=== PATIENT | female | born 1985 | race Hispanic/Latino ===

== ENCOUNTER 2019-08-01 17:14 | Emergency (ER) | payer MEDICAID ==
--- NOTE | 2019-08-01 17:41 | Event Note ---
ED Screening Note Date of service: 08/01/19 Time: 17:37 ED Screening Note: 33 y o female presents with pelvic pain and cramping with headaches x today Irregular cycle This initial assessment/diagnostic orders/clinical plan/treatment(s) is/are subject to change based on patients health status, clinical progression and re- assessment by fellow clinical providers in the ED. Further treatment and workup at subsequent clinical providers discretion. Patient/guardian urged not to elope from the ED as their condition may be serious if not clinically assessed and managed. Initial orders include: ua,upt US
[2019-08-01 19:47] LABS: Bilirubin,Urine NEG (Negative); Blood,Urine NEG (Negative); Color,Urine Straw (Yellow); Protein,Urine <15 mg/dL mg/dL (Negative); Urobilinogen,Urine < 2.0 mg/dL (<2.0)
--- NOTE | 2019-08-01 19:49 | Ultrasound Report ---
ULTRASOUND PELVIS INDICATION: Pelvic pain. TECHNIQUE: Transabdominal and Transvaginal. Duplex Color Doppler used: Yes. COMPARISON: None available FINDINGS: Uterus: Present. Size: 7.8 x 4.7 x 5.9 cm. Endometrial complex: Measures 8 mm in thickness. An IUD appears to be in good position. No significan t abnormality is identified. Mass lesions: There is a probable uterine fundal fibroid measuring 2.0 x 1.9 x 1.6 cm. Additional findings: None. Right Ovary: Size: 3.4 x 1.6 x 2.9 cm Blood flow: Normal. Cyst or mass: None. Left Ovary: Size: 5.4 x 3.4 x 5.7 cm Blood flow: Normal. Cyst or mass: A simple appearing cyst measures 4.6 x 2.7 x 3.8 cm. No solid lesions. Urinary Bladder: Normal. Free Fluid: None. Additional Findings: None. IMPRESSION: 1. No acute sonographic abnormality of the pelvis. 2. Probable uterine fibroid as above. 3. Simple appearing left ovarian cyst as above. Signer Name: John Aguilar MD Signed: 08/01/2019 7:45 PM Workstation Name: [id number]
[2019-08-01 19:51] LABS: HCG Qualitative,Urine Negative (Negative)
[2019-08-01] MEDS ORDERED: IBUPROFEN 600 MG TAB PO ONE ×2 (20:02→20:04)
--- NOTE | 2019-08-01 22:35 | Emergency Department Report ---
ED Abdominal Pain HPI - General Chief Complaint: Abdominal Pain Stated Complaint: CRAMPING/HEADACHE Time Seen by Provider: 08/01/19 22:15 Source: patient Mode of arrival: Ambulatory Limitations: No Limitations - History of Present Illness Initial Comments: Patient is a 33-year-old female that presents emergency room with complaints of lower abdominal pain and cramps. Patient states she is having suprapubic and bilateral lower quadrant pain. Patient states the pain is a 9 out of 10. Patient states the pain is better with rest and worse with palpation and movement. Patient states that the pain is giving her a headache. P states her headache is a 6 out of 10. Patient denies neck stiffness. Patient denies nausea vomiting. Patient denies blurry vision. Patient denies dizziness. Patient denies loss of consciousness. Patient denies head trauma. Patient states she has a IUD that was placed by her [employer] INTER[employer]. Patient states she is worried that the IUD has moved. Patient denies vaginal bleeding. Patient denies vaginal discharge. Patient den ies vaginal odor. Patient denies dysuria. MD Complaint: abdominal pain -: Sudden Location: suprapubic Radiation: LLQ, RLQ Migration to: no migration Severity: severe Severity scale (0 -10): 9 Quality: cramping, stabbing Consistency: constant Improves With: rest Worsens With: movement Context: other Associated Symptoms: denies: nausea, vomiting, diarrhea, fever, chills, c onstipation, dysuria, hematemesis, hematochezia, melena, hematuria, anorexia, syncope Treatments Prior to Arrival: other - Related Data LMP (females 10-50): unknown Previous Rx's Medication Instructions Recorded Last Taken Type Acetaminophen/Codeine [Tylenol 1 tab PO Q4HR PRN #12 tablet 08/02/19 Unknown Rx /Codeine # 3 tab] Ibuprofen [Motrin 800 MG tab] 800 mg PO Q8HR PRN #30 tablet 08/02/19 Unknown Rx Allergies Allergy/AdvReac Type Severity Reaction Status Date / Time amoxicillin Allergy Rash Verified 08/01/19 17:35 ciprofloxacin [From Cipro] Allergy Anaphylaxis Verified 08/01/19 17:35 ED Review of Systems ROS: Stated complaint: CRAMPING/HEADACHE Other details as noted in HPI Constitutional: denies: chills, fever Eyes: denies: eye pain, eye discharge, vision change ENT: denies: ear pain, throat pain Respiratory: denies: cough, shortness of breath, wheezing Cardiovascular: denies: chest pain, palpitations Endocrine: no symptoms reported Gastrointestinal: abdominal pain. denies: nausea, diarrhea Genitourinary: denies: urgency, dysuria, frequency, hematuria, discharge, abnormal menses, dyspareunia Musculoskeletal: denies: back pain, joint swelling, arthralgia Skin: denies: rash, lesions Neurological: headache. denies: weakness, paresthesias Psychiatric: denies: anxiety, depression Hematological/Lymphatic: denies: easy bleeding, easy bruising ED Past Medical Hx - Past Medical History Previous Medical History?: Yes Hx Asthma: Yes Additional medical history: Anemia - Surgical History Past Surgical History?: Yes Hx Appendectomy: Yes Additional Surgical History: back surgery - Family History Family history: no significant - Social History Smoking Status: Never Smoker Substance Use Type: None - Medications Home Medications: Home Medications Medication Instructions Recorded Confirmed Last Taken Type Acetaminophen/Codeine [Tylenol 1 tab PO Q4HR PRN #12 tablet 08/02/19 Unknown Rx /Codeine # 3 tab] Ibuprofen [Motrin 800 MG tab] 800 mg PO Q8HR PRN #30 tablet 08/02/19 Unknown Rx ED Physical Exam - General Limitations: No Limitations General appearance: alert, in no apparent distress - Head Head exam: Present: atraumatic, normocephalic - Eye Eye exam: Present: normal appearance, PERRL Pupils: Present: normal accommodation - ENT ENT exam: Present: mucous membranes moist - Neck Neck exam: Present: normal inspection, full ROM. Absent: tenderness, meningismus - Respiratory Respiratory exam: Present: normal lung sounds bilaterally. Absent: respiratory distress, wheezes, rales - Cardiovascular Cardiovascular Exam: Present: regular rate, normal rhythm. Absent: systolic murmur, diastolic murmur, rubs, gallop - GI/Abdominal GI/Abdominal exam: Present: soft, tenderness (Suprapubic tenderness. Left lower and right lower quadrant tenderness to palpation), normal bowel sounds - Extremities Exam Extremities exam: Present: normal inspection - Back Exam Back exam: Present: normal inspection - Neurological Exam Neurological exam: Present: alert, oriented X3 - Psychiatric Psychiatric exam: Present: normal affect, normal mood - Skin Skin exam: Present: warm, dry, intact, normal color. Absent: rash ED Course Vital Signs 02/26/20 02/26/20 02/26/20 20:00 20:10 23:31 Temperature 97.8 F Pulse Rate 63 87 Respiratory 18 18 18 Rate Blood Pressure 114/70 Blood Pressure 122/81 [Right] O2 Sat by Pulse 100 97 Oximetry - Reevaluation(s) Reevaluation #1: I discussed all results and clinical findings with patient. I discussed plan of care with patient. Patient agrees with plan of care. Patient is stable for discharge. Patient will be discharged home. Patient given discharge in structions. Patient voiced understanding of discharge instructions. 08/02/19 01:19 ED Medical Decision Making - Lab Data Result diagrams: 08/01/19 22:51 08/01/19 22:51 - Radiology Data Radiology results: report reviewed ULTRASOUND PELVIS INDICATION: Pelvic pain. TECHNIQUE: Transabdominal and Transvaginal. Duplex Color Doppler used: Yes. COMPARISON: None available FINDINGS: Uterus: Present. Size: 7.8 x 4.7 x 5.9 cm. Endometrial complex: Measures 8 mm in thickness. An IUD appears to be in good position. No significant abnormality is identified. Mass lesions: There is a probable uterine fundal fibroid measuring 2.0 x 1.9 x 1.6 cm. Additional findings: None. Right Ovary: Size: 3.4 x 1.6 x 2.9 cm Blood flow: Normal. Cyst or mass: None. Left Ovary: Size: 5.4 x 3.4 x 5.7 cm Blood flow: Normal. Cyst or mass: A simple appearing cyst measures 4.6 x 2.7 x 3.8 cm. No solid lesions. Urinary Bladder: Normal. Free Fluid: None. Additional Findings: None. IMPRESSION: 1. No acute sonographic abnormality of the pelvis. 2. Probable uterine fibroid as above. 3. Simple appearing left ovarian cyst as above. CT ABDOMEN AND PELVIS WITH IV CONTRAST INDICATION: Pt complains of bi-lateral lower abdominal pain x 2 weeks.. COMPARISON: None available. TECHNIQUE: All CT scans at this facility use dose modulation, automated exposure control, i terative reconstruction or weight based dosing, when appropriate, to reduce radiation dose to as low as reasonably achievable. FINDINGS: Lung Bases: No significant abnormality. Skeletal System: No acute abnormality. ABDOMEN: Liver: No significant abnormality. Gallbladder: No significant abnormality. Bile Ducts: No significant abnormality. Pancreas: No significant abnormality. Spleen: Splenomegaly, mild. Adrenals: No significant abnormality. Right Kidney: No significant abnormality. Left Kidney: No significant abnormality. Upper GI tract: No significant abnormality. Lymph Nodes: No significant adenopathy. Aorta: No significant abnormality. Additional Findings: No significant abnormality. PELVIS: Colon: No acute abnormality. Diverticulosis is noted. Urinary Bladder and Distal Ureters: No significant abnormality. Appendix: Not visualized. Lymph Nodes: No significant adenopathy. Additional Findings: IUD is noted in expected position. There is a 3.8 cm left ovarian cyst. The cervix appears mildly edematous. IMPRESSION: 1. Subjectively, the cervix appears mildly edematous. Correlate clinically. 2. 3.8 cm left ovarian cyst. - Medical Decision Making Patient is a 33-year-old female that presents emergency room with bilateral lower abdominal pain and suprapubic abdominal pain. Patient had a ultrasound done and shows IUD is in good place and a uterine fibroid and a ovarian cyst. Since the patient had bilateral lower quadrant tenderness a CT was done. CT shows no acute findings except for subjective cervical edema and ovarian cyst. Labs unremarkable. Patient stable for discharge. Patient discharged home. Finesse ramirez is to follow-up with an ENRICHMENT ASSISTANT. Patient needs to see primary care. - Differential Diagnosis Appendicitis, migrated IUD, ovarian cyst, gastroenteritis Critical care attestation.: If time is entered above; I have spent that time in minutes in the direct care of this critically ill patient, excluding procedure time. ED Disposition Clinical Impression: Abdominal cramping, IUD (intrauterine device) in place Abdominal pain Qualifiers: Abdominal location: lower abdomen, unspecified Qualified Code(s): R10.30 - Lower abdominal pain, unspecified Ovarian cyst Qualifiers: Laterality: left Qualified Code(s): N83.202 - Unspecified ovarian cyst, left side Uterine fibroid Qualifiers: Uterine leiomyoma location: unspecified location Qualified Code(s): D25.9 - Leiomyoma of uterus, unspecified Disposition: DC- TO HOME OR SELFCARE Is pt being admited?: No Does the pt Need Aspirin: No Condition: Stable Instructions: Ovarian Cyst (ED), Abdominal Pain (ED) Additional Instructions: Patient to follow-up with primary care in 2 to 3 days. Patient to follow-up with ENRICHMENT ASSISTANT in 2 to 3 days. Nothing per vagina until cleared by ENRICHMENT ASSISTANT. Patient to rest. Patient to increase water. Patient to avoid strenuous exercise or heavy lifting until cleared by ENRICHMENT ASSISTANT. Patient to take Tylenol or ibuprofen as needed for pain. Patient to take meds as directed. Patient to return to the ER if condition worsens, changes or new symptoms arise. Prescriptions: Ibuprofen [Motrin 800 MG tab] 800 mg PO Q8HR PRN #30 tablet PRN Reason: Pain, Moderate (4-6) Acetaminophen/Codeine [Tylenol /Codeine # 3 tab] 1 tab PO Q4HR PRN #12 tablet PRN Reason: Pain , Severe (7-10) Referrals: PRIMARY CARE, [Primary Care Provider] - 2-3 Days FRANDY SHARIF MD [Staff Physician] - 2-3 Days Time of Disposition: 01:12
[2019-08-01] MEDS ORDERED: HYDROmorphone 1 MG/1 ML INJ IV ONE (22:56)
[2019-08-01 23:03] LABS: Hematocrit 41.8 % (30.3-42.9); Hemoglobin 14.1 gm/dl (10.1-14.3); Mean Corpuscular HGB Conc 34 % (30-34); Mean Corpuscular Volume 85 fl (79-97); Platelet Count 166 K/mm3 (140-440); Red Blood Count 4.89 M/mm3 (3.65-5.03); Red Cell Distribution Width 12.5 % (13.2-15.2)
[2019-08-01 23:27] LABS: Alanine Aminotransferase 7 units/L (7-56); Albumin 4.1 g/dL (3.9-5); BUN/Creatinine Ratio 18; Blood Urea Nitrogen 9 mg/dL (7-17); Calcium 8.8 mg/dL (8.4-10.2); Hemolysis Index 8
--- NOTE | 2019-08-02 00:56 | Cat Scan Report ---
CT ABDOMEN AND PELVIS WITH IV CONTRAST INDICATION: Pt complains of bi-lateral lower abdominal pain x 2 weeks.. COMPARISON: None available. TECHNIQUE: All CT scans at this facility use dose modulation, automated exposure control, iterative reconstructi on or weight based dosing, when appropriate, to reduce radiation dose to as low as reasonably achieva ble. FINDINGS: Lung Bases: No significant abnormality. Skeletal System: No acute abnormality. ABDOMEN: Liver: No significant abnormality. Gallbladder: No significant abnormality. Bile Ducts: No significant abnormality. Pancreas: No significant abnormality. Spleen: Splenomegaly, mild. Adrenals: No significant abnormality. Right Kidney: No significant abnormality. Left Kidney: No significant abnormality. Upper GI tract: No significant abnormality. Lymph Nodes: No significant adenopathy. Aorta: No significant abnormality. Additional Findings: No significant abnormality. PELVIS: Colon: No acute abnormality. Diverticulosis is noted. Urinary Bladder and Distal Ureters: No significant abnormality. Appendix: Not visualized. Lymph Nodes: No significant adenopathy. Additional Findings: IUD is noted in expected position. There is a 3.8 cm left ovarian cyst. The cerv ix appears mildly edematous. IMPRESSION: 1. Subjectively, the cervix appears mildly edematous. Correlate clinically. 2. 3.8 cm left ovarian cyst. Signer Name: Magan Manriquez MD Signed: 08/02/2019 12:52 AM Workstation Name: [email or web address]
[2019-08-02 01:23] VITALS: BP 107/67
== END 2019-08-02 01:23 | disposition home or self-care (01) ==
LOC: ED 17:14
DX: Z30.431 Encounter for routine checking of intrauterine contraceptive device (principal); R10.30 Lower abdominal pain, unspecified; N83.202 Unspecified ovarian cyst, left side; D25.9 Leiomyoma of uterus, unspecified; J45.909 Unspecified asthma, uncomplicated; D64.9 Anemia, unspecified; Z88.0 Allergy status to penicillin; Z88.1 Allergy status to other antibiotic agents; Z79.899 Other long term (current) drug therapy; Z98.890 Other specified postprocedural states; Z90.49 Acquired absence of other specified parts of digestive tract
CPT/HCPCS: 36415; 74177; 76830; 76856; 80053; 81001; 81025; 85027; 96374; 99284; J1170; Q9967

== ENCOUNTER 2019-10-30 16:53 | Emergency (ER) | payer BC, MEDICAID ==
[2019-10-30] MEDS ORDERED: ASPIRIN 325 MG TAB PO ONE (17:18)
--- NOTE | 2019-10-30 17:44 | XRay Report ---
CHEST 2 VIEWS INDICATION / CLINICAL INFORMATION: Chest Pain. COMPARISON: None available. FINDINGS: SUPPORT DEVICES: None. HEART / MEDIASTINUM: No significant abnormality. LUNGS / PLEURA: No significant pulmonary or pleural abnormality. No pneumothorax. ADDITIONAL FINDINGS: Bilateral nipple piercings. IMPRESSION: 1. No acute findings. Signer Name: Nael Malone MD Signed: 10/30/2019 5:40 PM Workstation Name: [id number]
[2019-10-30 18:22] LABS: Basophils % (Auto) 0.2 % (0.0-1.8); Eosinophils # (Auto) 0.1 K/mm3 (0.0-0.4); Eosinophils % (Auto) 1.1 % (0.0-4.3); Hematocrit 41.1 % (30.3-42.9); Hemoglobin 13.8 gm/dl (10.1-14.3); Lymphocytes # (Auto) 2.9 K/mm3 (1.2-5.4); Lymphocytes % (Auto) 30.3 % (13.4-35.0); Mean Corpuscular HGB Conc 34 % (30-34); Mean Corpuscular Volume 85 fl (79-97); Monocytes # (Auto) 0.5 K/mm3 (0.0-0.8); Monocytes % (Auto) 5.1 % (0.0-7.3); Platelet Count 184 K/mm3 (140-440); Red Blood Count 4.82 M/mm3 (3.65-5.03); Red Cell Distribution Width 13.1 % (13.2-15.2)
[2019-10-30 18:46] LABS: BUN/Creatinine Ratio 16; Blood Urea Nitrogen 11 mg/dL (7-17); Calcium 9.4 mg/dL (8.4-10.2); Hemolysis Index 13
[2019-10-30] MEDS ORDERED: KETOROLAC 30 MG/1 ML INJ IM ONE (22:52)
[2019-10-30] MEDS ORDERED: ASPIRIN 325 MG TAB ONE (23:08)
[2019-10-30 23:39] LABS: INR 1.13 (0.87-1.13)
[2019-10-30 23:40] LABS: Partial Thromboplastin Time 28.8 Sec. (24.2-36.6)
--- NOTE | 2019-10-30 23:46 | Emergency Department Report ---
ED Chest Pain HPI - General Chief Complaint: Chest Pain Stated Complaint: CHEST PAIN Time Seen by Provider: 10/30/19 22:15 Source: patient Mode of arrival: Ambulatory Limitations: No Limitations - History of Present Illness Initial Comments: 33 yo F w/ hx anxiety presents to ED with right sided chest pain. Pt states initially began having right subscapular pain yesterday. Today, right anterior chest pain, worse w/ deep breath. Pt denies cough, fever, shortness of breath, leg pain or swelling. Pt believes symptoms may be due to stress. MD Complaint: chest pain -: This morning Onset: during rest Pain Location: right chest Pain Radiation: back Severity: moderate Severity scale (0 -10): 8 Quality: sharp Consistency: constant Improves With: nothing Worsens With: inspiration re: denies: nausea, vomting, diaphoresis, dyspnea Other Symptoms: denies: cough, fever, leg swelling - Related Data Previous Rx's Medication Instructions Recorded Last Taken Type Acetaminophen/Codeine [Tylenol 1 tab PO Q4HR PRN #12 tablet 08/02/19 Unknown Rx /Codeine # 3 tab] Ibuprofen [Motrin 800 MG tab] 800 mg PO Q8HR PRN #30 tablet 08/02/19 Unknown Rx Naproxen [Naprosyn] 500 mg PO BID #20 tablet 10/30/19 Unknown Rx methOCARBAMOL [Robaxin TAB] 500 mg PO Q8HR PRN #20 tablet 10/30/19 Unknown Rx Allergies Allergy/AdvReac Type Severity Reaction Status Date / Time amoxicillin Allergy Rash Verified 08/01/19 17:35 ciprofloxacin [From Cipro] Allergy Anaphylaxis Verified 08/01/19 17:35 Heart Score - HEART Score History: Slightly suspicious EKG: Normal Age: < 45 Risk factors: No known risk factors Troponin: < normal limit HEART Score: 0 ED Review of Systems ROS: Stated complaint: CHEST PAIN Other details as noted in HPI Comment: All other systems reviewed and negative Constitutional: denies: chills, fever Respiratory: denies: cough, shortness of breath Cardiovascular: chest pain Gastrointestinal: denies: nausea, vomiting ED Past Medical Hx - Past Medical History Previous Medical History?: Yes Hx Psychiatric Treatment: Yes (anxeity) Hx Asthma: Yes Additional medical history: Anemia - Surgical History Past Surgical History?: Yes Hx Appendectomy: Yes Additional Surgical History: back surgery. x2 - Social History Smoking Status: Never Smoker Substance Use Type: None - Medications Home Medications: Home Medications Medication Instructions Recorded Confirmed Last Taken Type Acetaminophen/Codeine [Tylenol 1 tab PO Q4HR PRN #12 tablet 08/02/19 Unknown Rx /Codeine # 3 tab] Ibuprofen [Motrin 800 MG tab] 800 mg PO Q8HR PRN #30 tablet 08/02/19 Unknown Rx Naproxen [Naprosyn] 500 mg PO BID #20 tablet 10/30/19 Unknown Rx methOCARBAMOL [Robaxin TAB] 500 mg PO Q8HR PRN #20 tablet 10/30/19 Unknown Rx ED Physical Exam - General Limitations: No Limitations General appearance: alert, in no apparent distress - Head Head exam: Present: atraumatic, normocephalic - Eye Eye exam: Present: normal appearance - ENT ENT exam: Present: mucous membranes moist - Neck Neck exam: Present: normal inspection - Respiratory Respiratory exam: Present: normal lung sounds bilaterally, chest wall tenderness (right anterior chest wall). Absent: respiratory distress - Cardiovascular Cardiovascular Exam: Present: regular rate, normal rhythm - GI/Abdominal GI/Abdominal exam: Present: soft. Absent: distended, tenderness - Extremities Exam Extremities exam: Present: normal inspection - Neurological Exam Neurological exam: Present: alert, oriented X3 - Psychiatric Psychiatric exam: Present: normal affect, normal mood - Skin Skin exam: Present: warm, dry, intact, normal color ED Course Vital Signs 10/30/19 10/30/19 10/30/19 17:15 22:14 22:19 Temperature 98.9 F Pulse Rate 86 Respiratory 18 18 Rate Blood Pressure 119/79 124/81 O2 Sat by Pulse 100 Oximetry 10/30/19 10/30/19 10/30/19 22:31 22:45 23:01 Temperature Pulse Rate 72 76 72 Respiratory 18 17 21 Rate Blood Pressure 124/81 115/71 O2 Sat by Pulse 100 100 99 Oximetry 10/30/19 10/30/19 10/30/19 23:15 23:31 23:45 Temperature Pulse Rate 69 70 77 Respiratory 14 20 16 Rate Blood Pressure 115/71 115/71 115/71 O2 Sat by Pulse 97 99 98 Oximetry 10/30/19 10/31/19 10/31/19 23:54 00:00 00:13 Temperature Pulse Rate 73 72 68 Respiratory 16 17 17 Rate Blood Pressure 115/71 109/70 115/71 O2 Sat by Pulse 99 98 97 Oximetry 10/31/19 10/31/19 00:15 00:20 Temperature 98.0 F Pulse Rate 72 Respiratory 15 Rate Blood Pressure 115/71 O2 Sat by Pulse 96 Oximetry ED Medical Decision Making - Lab Data Result diagrams: 10/30/19 17:58 10/30/19 17:58 - EKG Data -: EKG Interpreted by Md EKG shows normal: sinus rhythm, axis, intervals, QRS complexes, ST-T waves Rate: normal - EKG Data Interpretation: no acute changes - Radiology Data Radiology results: report reviewed, image reviewed - Medical Decision Making Pleuritic right-sided chest pain. Chest wall tenderness on exam. EKG normal. Labs normal including troponin x 2 and D-dimer. CXR negative. Vitals normal. Will d/c home. Outpt f/u advised. Return precautions given. - Differential Diagnosis pneumonia, PTX, PE Critical care attestation.: If time is entered above; I have spent that time in minutes in the direct care of this critically ill patient, excluding procedure time. ED Disposition Clinical Impression: Acute chest wall pain Disposition: - TO HOME OR SELFCARE Is pt being admited?: No Condition: Stable Instructions: Chest Pain (ED), Costochondritis (ED) Prescriptions: Naproxen [Naprosyn] 500 mg PO BID #20 tablet methOCARBAMOL [Robaxin TAB] 500 mg PO Q8HR PRN #20 tablet PRN Reason: Muscle Spasm Referrals: PRIMARY CARE, [Primary Care Provider] - 3-5 Days Time of Disposition: 23:53
[2019-10-31 00:21] VITALS: BP 115/71
== END 2019-10-31 00:21 | disposition home or self-care (01) ==
LOC: ED 16:53
DX: R07.89 Other chest pain (principal); F41.9 Anxiety disorder, unspecified; J45.909 Unspecified asthma, uncomplicated; D64.9 Anemia, unspecified; Z98.890 Other specified postprocedural states; Z79.899 Other long term (current) drug therapy; Z88.8 Allergy status to other drugs, medicaments and biological substances; Z90.49 Acquired absence of other specified parts of digestive tract
CPT/HCPCS: 36415; 71046; 80048; 84484; 85025; 85379; 85610; 85730; 93005; 96372; 99284; J1885

== ENCOUNTER 2020-02-04 17:49 | Emergency (ER) | payer BC, MEDICAID ==
[2020-02-04] MEDS ORDERED: ASPIRIN 325 MG TAB PO ONE (18:06)
[2020-02-04 18:08] VITALS: BP 128/84
[2020-02-04 18:35] LABS: Basophils % (Auto) 0.3 % (0.0-1.8); Eosinophils # (Auto) 0.1 K/mm3 (0.0-0.4); Eosinophils % (Auto) 0.6 % (0.0-4.3); Hematocrit 42.6 % (30.3-42.9); Hemoglobin 14.2 gm/dl (10.1-14.3); Lymphocytes # (Auto) 2.5 K/mm3 (1.2-5.4); Lymphocytes % (Auto) 26.1 % (13.4-35.0); Mean Corpuscular HGB Conc 33 % (30-34); Mean Corpuscular Volume 87 fl (79-97); Monocytes # (Auto) 0.4 K/mm3 (0.0-0.8); Monocytes % (Auto) 4.6 % (0.0-7.3); Platelet Count 197 K/mm3 (140-440); Red Blood Count 4.92 M/mm3 (3.65-5.03); Red Cell Distribution Width 13.2 % (13.2-15.2)
[2020-02-04 18:48] LABS: Blood Urea Nitrogen 13 mg/dL (7-17); Calcium 9.4 mg/dL (8.4-10.2); Hemolysis Index 16
[2020-02-04 18:54] LABS: BUN/Creatinine Ratio 19
--- NOTE | 2020-02-04 19:17 | Event Note ---
ED Screening Note Date of service: 02/04/20 Time: 19:16 ED Screening Note: 34-year-old female presents with pressure-like chest pain mid sternal and shortness of breathing that began today. Patient states after she got home sx got worse so she came in to be eval This initial assessment/diagnostic orders/clinical plan/treatment(s) is/are subject to change based on patients health status, clinical progression and re- assessment by fellow clinical providers in the ED. Further treatment and workup at subsequent clinical providers discretion. Patient/guardian urged not to elope from the ED as their condition may be serious if not clinically assessed and managed. Initial orders include: labs,ekg. cxr
--- NOTE | 2020-02-04 20:31 | XRay Report ---
CHEST 1 VIEW INDICATION: Chest Pain COMPARISON: 10/30/2019 FINDINGS: SUPPORT DEVICES: None. HEART / MEDIASTINUM: No significant abnormality. LUNGS / PLEURA: No significant pulmonary or pleural abnormality. No pneumothorax. ADDITIONAL FINDINGS: IMPRESSION: 1. No acute cardiopulmonary disease Signer Name: Norberto Angel MD Signed: 02/04/2020 8:26 PM Workstation Name: [id number]
--- NOTE | 2020-02-04 21:05 | Emergency Department Report ---
ED Chest Pain HPI - General Chief Complaint: Chest Pain Stated Complaint: SOB/CP/N/V/BODY PAIN Time Seen by Provider: 02/04/20 19:54 Source: patient Mode of arrival: Ambulatory Limitations: No Limitations - History of Present Illness Initial Comments: 34-year-old female patient presents with complaints of bilateral parasternal and substernal chest pain and shortness of breath starting suddenly today. She reports history of anxiety and states initially her pain in her chest felt like anxiety, however the pain progressed and was worse than normal. She states she normally takes Klonopin, but she was at work and was unable to do so. She denies any other prior medical history. Patient does admit to having a Mirena in place, but denies any leg pain/swelling, history of DVT/PE/cancer, recent long travel/surgeries, cough, hemoptysis, abdominal pain, vomiting/diarrhea, or known recent since sick contacts. She rates her current pain as a 9/10 in severity and and describes the pain as a pressure. Pain worsens with deep inspiration per patient. She denies any personal history or family history of heart disease. -: Gradual, Sudden Severity scale (0 -10): 9 - Related Data Previous Rx's Medication Instructions Recorded Last Taken Type Acetaminophen/Codeine [Tylenol 1 tab PO Q4HR PRN #12 tablet 08/02/19 Unknown Rx /Codeine # 3 tab] Ibuprofen [Motrin 800 MG tab] 800 mg PO Q8HR PRN #30 tablet 08/02/19 Unknown Rx Naproxen [Naprosyn] 500 mg PO BID #20 tablet 10/30/19 Unknown Rx methOCARBAMOL [Robaxin TAB] 500 mg PO Q8HR PRN #20 tablet 10/30/19 Unknown Rx Ibuprofen [Motrin 800 MG tab] 800 mg PO Q8HR PRN #15 tablet 02/04/20 Unknown Rx Allergies Allergy/AdvReac Type Severity Reaction Status Date / Time amoxicillin Allergy Rash Verified 02/04/20 18:03 ciprofloxacin [From Cipro] Allergy Anaphylaxis Verified 02/04/20 18:03 Heart Score - HEART Score History: Slightly suspicious EKG: Normal Age: < 45 Risk factors: No known risk factors Troponin: < normal limit HEART Score: 0 - Critical Actions Critical Actions: 0-3 pts:0.9-1.7%risk of adverse cardiac event.Candidate for discharge ED Review of Systems ROS: Stated complaint: SOB/CP/N/V/BODY PAIN Other details as noted in HPI Constitutional: denies: chills, diaphoresis, fever, malaise, weakness ENT: denies: throat pain Respiratory: shortness of breath. denies: cough Cardiovascular: chest pain. denies: edema, syncope Gastrointestinal: nausea. denies: abdominal pain, vomiting, diarrhea, constipation Genitourinary: denies: urgency, dysuria, hematuria Musculoskeletal: denies: back pain Skin: denies: rash, lesions Neurological: denies: headache ED Past Medical Hx - Past Medical History Hx Psychiatric Treatment: Yes (anxeity) Hx Asthma: Yes Additional medical history: Anemia - Surgical History Hx Appendectomy: Yes Additional Surgical History: back surgery. x2 - Social History Smoking Status: Never Smoker Substance Use Type: None - Medications Home Medications: Home Medications Medication Instructions Recorded Confirmed Last Taken Type Acetaminophen/Codeine [Tylenol 1 tab PO Q4HR PRN #12 tablet 08/02/19 Unknown Rx /Codeine # 3 tab] Ibuprofen [Motrin 800 MG tab] 800 mg PO Q8HR PRN #30 tablet 08/02/19 Unknown Rx Naproxen [Naprosyn] 500 mg PO BID #20 tablet 10/30/19 Unknown Rx methOCARBAMOL [Robaxin TAB] 500 mg PO Q8HR PRN #20 tablet 10/30/19 Unknown Rx Ibuprofen [Motrin 800 MG tab] 800 mg PO Q8HR PRN #15 tablet 02/04/20 Unknown Rx ED Physical Exam - General Limitations: No Limitations General appearance: alert, in no apparent distress - Head Head exam: Present: atraumatic, normocephalic - Eye Eye exam: Present: normal appearance. Absent: scleral icterus - Respiratory Respiratory exam: Present: normal lung sounds bilaterally, chest wall tenderness (Bilateral parasternal parasternal ). Absent: respiratory distress - Cardiovascular Cardiovascular Exam: Present: regular rate, normal rhythm. Absent: systolic murmur, diastolic murmur, rubs, gallop - GI/Abdominal GI/Abdominal exam: Present: soft, normal bowel sounds - Extremities Exam Extremities exam: Present: normal inspection, full ROM. Absent: calf tenderness (No swelling or pain noted to legs bilaterally) - Back Exam Back exam: Present: normal inspection - Neurological Exam Neurological exam: Present: alert, oriented X3, normal gait - Psychiatric Psychiatric exam: Present: normal affect, normal mood - Skin Skin exam: Present: warm, dry, intact, normal color. Absent: rash, cyanosis, diaphoretic, erythema, petechiae, ecchymosis ED Course Vital Signs 02/04/20 02/04/20 02/04/20 18:04 18:06 22:15 Temperature 98.0 F Pulse Rate 100 H 78 Respiratory 20 17 16 Rate Blood Pressure 128/84 O2 Sat by Pulse 99 99 Oximetry ED Medical Decision Making - Lab Data Result diagrams: 02/04/20 18:24 02/04/20 18:24 Lab Results 02/04/20 02/04/20 02/04/20 Range/Units 18:24 18:24 21:09 WBC 9.4 (4.5-11.0) K/mm3 RBC 4.92 (3.65-5.03) M/mm3 Hgb 14.2 (10.1-14.3) gm/dl Hct 42.6 (30.3-42.9) % MCV 87 (79-97) fl MCH 29 (28-32) pg MCHC 33 (30-34) % RDW 13.2 (13.2-15.2) % Plt Count 197 (140-440) K/mm3 Lymph % (Auto) 26.1 (13.4-35.0) % [place] % (Auto) 4.6 (0.0-7.3) % Eos % (Auto) 0.6 (0.0-4.3) % Baso % (Auto) 0.3 (0.0-1.8) % Lymph # 2.5 (1.2-5.4) K/mm3 [place] # 0.4 (0.0-0.8) K/mm3 Eos # 0.1 (0.0-0.4) K/mm3 Baso # 0.0 (0.0-0.1) K/mm3 Seg Neutrophils % 68.4 (40.0-70.0) % Seg Neutrophils # 6.4 (1.8-7.7) K/mm3 D-Dimer 212.99 (0-234) ng/mlDDU Sodium 138 (137-145) mmol/L Potassium 4.3 (3.6-5.0) mmol/L Chloride 104.3 (98-107) mmol/L Carbon Dioxide 21 L (22-30) mmol/L Anion Gap 17 mmol/L BUN 13 (7-17) mg/dL Creatinine 0.7 (0.6-1.2) mg/dL Estimated GFR > 60 ml/min BUN/Creatinine Ratio 19 % Glucose 98 (65-100) mg/dL Calcium 9.4 (8.4-10.2) mg/dL Troponin T < 0.010 (0.00-0.029) ng/mL - EKG Data EKG shows normal: sinus rhythm Rate: normal - EKG Data Interpretation: normal EKG - Radiology Data Radiology results: report reviewed CHEST 1 VIEW INDICATION: Chest Pain COMPARISON: 10/30/2019 FINDINGS: SUPPORT DEVICES: None. HEART / MEDIASTINUM: No significant abnormality. LUNGS / PLEURA: No significant pulmonary or pleural abnormality. No pneumothorax. ADDITIONAL FINDINGS: IMPRESSION: 1. No acute cardiopulmonary disease - Medical Decision Making Patient here with sudden onset of shortness of breath and chest pain. History of anxiety and patient states his pain feels similar but worse than normal. Has not taken her Klonopin today. Repeats over and over that she has been under a lot of stress lately. She denies any chest wall injuries. EKG, troponin, CBC, and CMP are normal. No abnormalities noted on chest x-ray. PERC score = 1 due to Mirena and HR 0f 100. D-dimer is negative. Patient given Ativan and states her symptoms have significantly improved. Tenderness to palpation noted of chest wall. Suspect costochondritis and anxiety as cause of patient's chest pain. Recommend follow-up with primary care within 3 days. Strict return precautions were discussed in detail with patient who verbalized understanding. Critical care attestation.: If time is entered above; I have spent that time in minutes in the direct care of this critically ill patient, excluding procedure time. ED Disposition Clinical Impression: Costochondritis Disposition: - TO HOME OR SELFCARE Is pt being admited?: No Condition: Stable Instructions: Chest Pain (ED), Costochondritis (ED) Prescriptions: Ibuprofen [Motrin 800 MG tab] 800 mg PO Q8HR PRN #15 tablet PRN Reason: pain Referrals: PRIMARY CARE,MD [Primary Care Provider] - 2-3 Days ED Chest pain MDM - PERC Rule Heart Rate < 100: (1) Yes O2 Sat on Room Air > .94%: (0) No No Prior History pf DVT/PE: (0) No No Recent Trauma or Surgery: (0) No Hemoptysis: (0) No No Exogenous Estrogen: (1) Yes No Clinical Signs Suggesting DVT: (0) No
[2020-02-04] MEDS ORDERED: LORazepam 1 MG TAB PO ONE (21:06)
[2020-02-04] MEDS ORDERED: KETOROLAC 10 MG TAB PO ONE (21:46)
== END 2020-02-04 22:15 | disposition home or self-care (01) ==
LOC: ED 17:49
DX: M94.0 Chondrocostal junction syndrome [Tietze] (principal); F41.9 Anxiety disorder, unspecified; J45.909 Unspecified asthma, uncomplicated; Z90.49 Acquired absence of other specified parts of digestive tract; Z98.890 Other specified postprocedural states; Z79.1 Long term (current) use of non-steroidal anti-inflammatories (NSAID); Z79.899 Other long term (current) drug therapy; Z88.1 Allergy status to other antibiotic agents
CPT/HCPCS: 36415; 71045; 80048; 84484; 85025; 85379; 93005

== ENCOUNTER 2020-04-04 21:34 | Emergency (ER) | payer BC, MEDICAID ==
--- NOTE | 2020-04-04 23:30 | XRay Report ---
Lumbar spine 2 views INDICATION: Low back pain IMPRESSION: L4-S1 PLIF noted. No acute fracture or subluxation is identified. Mild neural foraminal n arrowing identified at L5-S1. Signer Name: Martin Oscar MD Signed: 04/04/2020 11:26 PM Workstation Name: [id number]
--- NOTE | 2020-04-05 00:03 | Emergency Department Report ---
ED Back Pain/Injury HPI - General Chief Complaint: Back Pain/Injury Stated Complaint: BACK PAINS Time Seen by Provider: 04/04/20 23:34 Source: patient Limitations: No Limitations - History of Present Illness Initial Comments: 34-year-old female with past medical history of a lumbar fusion just over 2 years ago presents emerged department complaining of numbness tingling to her left buttocks and left lower back region that radiates down her legs off and on as has been doing so for the past few days. She reports no loss of bowel bladder no saddle paresthesia, no fever, chills, sweats no chest pain Palpitations. No hematuria or dysuria. She reports no known trauma Place: home Radiation: left leg Improves With: none Worsens With: none Associated Symptoms: denies other symptoms - Related Data Previous Rx's Medication Instructions Recorded Last Taken Type Acetaminophen/Codeine [Tylenol 1 tab PO Q4HR PRN #12 tablet 08/02/19 Unknown Rx /Codeine # 3 tab] Ibuprofen [Motrin 800 MG tab] 800 mg PO Q8HR PRN #30 tablet 08/02/19 Unknown Rx Naproxen [Naprosyn] 500 mg PO BID #20 tablet 10/30/19 Unknown Rx methOCARBAMOL [Robaxin TAB] 500 mg PO Q8HR PRN #20 tablet 10/30/19 Unknown Rx Ibuprofen [Motrin 800 MG tab] 800 mg PO Q8HR PRN #15 tablet 02/04/20 Unknown Rx Ketorolac [Toradol] 10 mg PO Q6H PRN #10 tablet 04/05/20 Unknown Rx methOCARBAMOL [Robaxin TAB] 750 mg PO Q8H #20 tablet 04/05/20 Unknown Rx Allergies Allergy/AdvReac Type Severity Reaction Status Date / Time amoxicillin Allergy Rash Verified 02/04/20 18:03 ciprofloxacin [From Cipro] Allergy Anaphylaxis Verified 02/04/20 18:03 ED Review of Systems ROS: Stated complaint: BACK PAINS Other details as noted in HPI Comment: All other systems reviewed and negative ED Past Medical Hx - Past Medical History Previous Medical History?: Yes Hx Psychiatric Treatment: Yes (anxeity) Hx Asthma: Yes Additional medical history: Anemia - Surgical History Hx Appendectomy: Yes Additional Surgical History: back surgery. x2 - Social History Smoking Status: Never Smoker Substance Use Type: None - Medications Home Medications: Home Medications Medication Instructions Recorded Confirmed Last Taken Type Acetaminophen/Codeine [Tylenol 1 tab PO Q4HR PRN #12 tablet 08/02/19 Unknown Rx /Codeine # 3 tab] Ibuprofen [Motrin 800 MG tab] 800 mg PO Q8HR PRN #30 tablet 08/02/19 Unknown Rx Naproxen [Naprosyn] 500 mg PO BID #20 tablet 10/30/19 Unknown Rx methOCARBAMOL [Robaxin TAB] 500 mg PO Q8HR PRN #20 tablet 10/30/19 Unknown Rx Ibuprofen [Motrin 800 MG tab] 800 mg PO Q8HR PRN #15 tablet 02/04/20 Unknown Rx Ketorolac [Toradol] 10 mg PO Q6H PRN #10 tablet 04/05/20 Unknown Rx methOCARBAMOL [Robaxin TAB] 750 mg PO Q8H #20 tablet 04/05/20 Unknown Rx ED Physical Exam - General Limitations: No Limitations General appearance: alert, in no apparent distress - Head Head exam: Present: atraumatic, normocephalic, normal inspection - Eye Eye exam: Present: normal appearance, PERRL, EOMI. Absent: scleral icterus, conjunctival injection, periorbital swelling, periorbital tenderness Pupils: Present: normal accommodation - ENT ENT exam: Present: mucous membranes moist. Absent: normal exam - Neck Neck exam: Present: normal inspection - Respiratory Respiratory exam: Present: normal lung sounds bilaterally. Absent: respiratory distress - Cardiovascular Cardiovascular Exam: Present: regular rate, normal rhythm. Absent: systolic murmur, diastolic murmur, rubs, gallop - GI/Abdominal GI/Abdominal exam: Present: soft, normal bowel sounds - Extremities Exam Extremities exam: Present: normal inspection - Back Exam Back exam: Present: normal inspection, paraspinal tenderness, other (Tenderness over left regular joint with palpation. Straight leg raise negative. ALTAGRACIA test is negative. Full range of motion of the lumbar region.) - Neurological Exam Neurological exam: Present: alert, oriented X3, CN II-XII intact, normal gait - Psychiatric Psychiatric exam: Present: normal affect, normal mood - Skin Skin exam: Present: warm, dry, intact, normal color. Absent: rash ED Course Vital Signs 04/04/20 22:18 Temperature 98.5 F Pulse Rate 91 H Respiratory 18 Rate Blood Pressure 120/79 O2 Sat by Pulse 100 Oximetry ED Medical Decision Making - Radiology Data Radiology results: report reviewed Referring Physician:OWEN CHONGPatient Name:RANDAL BYERSPatient ID:[id number] of :[id number]:FemaleAccession:[id number] Date:[id number] Status:Finalized Findings [facility] [address] [place] [address] XRay Report Signed Patient: RANDAL BYERS MR#: [id number] : 1985 Acct:[id number] Age/Sex: 34 / F ADM Date: 04/04/20 Loc: ED Attending Dr: Ordering Physician: ODIN OAKLEY Date of Service: 04/04/20 Procedure(s): XR spine lumbosacral 2-3V Accession Number(s): [id number] cc: ODIN OAKLEY Fluoro Time In Minutes: Lumbar spine 2 views INDICATION: Low back pain IMPRESSION: L4-S1 PLIF noted. No acute fracture or subluxation is identified. Mild neural foraminal narrowing identified at L5-S1. Signer Name: Martin Oscar MD Signed: 04/04/2020 11:26 PM Workstation Name: [id number] Transcribed By: BC Dictated By: Martin Oscar MD Electronically Authenticated By: Martin Oscar MD Signed Date/Time: 04/04/202325 DD/ 24 TD/TT: - Medical Decision Making Pt presents the emergency department complaining of back pain most consistent with musculoskeletal back pain back Pain Most Consistent with Strain/Contusion. Differential Diagnosis Includes Lumbar Go Versus Musculoskeletal Spasm, Strain Versus Sciatica. No Back Pain Red Flags on History or Physical. Presentation Not Consistent with Malignancy, Fracture, Cauda Equina, Abdominal Aortic Aneurysm, Viscus Perforation, Pulmonary Embolism, Renal Colic, Pyelonephritis. Patient reports no B symptoms, trauma trauma, incontinence, saddle anesthesia, distal weakness, urinary symptoms and is a febrile. Critical care attestation.: If time is entered above; I have spent that time in minutes in the direct care of this critically ill patient, excluding procedure time. ED Disposition Clinical Impression: Spinal stenosis Disposition: - TO HOME OR SELFCARE Is pt being admited?: No Does the pt Need Aspirin: No Condition: Stable Instructions: Low Back Strain (ED), Acute Low Back Pain (ED), Lumbar Radiculopathy (ED) Prescriptions: methOCARBAMOL [Robaxin TAB] 750 mg PO Q8H #20 tablet Ketorolac [Toradol] 10 mg PO Q6H PRN #10 tablet PRN Reason: Pain Referrals: PRIMARY CAREMD [Primary Care Provider] - 3-5 Days [facility] [Provider Group] - 3-5 Days GENARO CATHERINE MD [Staff Physician] - 3-5 Days
[2020-04-05] MEDS ORDERED: HYDROcodone/ACETAMINOPHEN 5-325 MG TAB PO STA (00:26)
[2020-04-05 00:38] VITALS: BP 120/76
== END 2020-04-05 01:30 | disposition home or self-care (01) ==
LOC: ED 21:34
DX: M48.07 Spinal stenosis, lumbosacral region (principal); F41.9 Anxiety disorder, unspecified; J45.909 Unspecified asthma, uncomplicated; Z90.49 Acquired absence of other specified parts of digestive tract; Z98.890 Other specified postprocedural states; Z79.1 Long term (current) use of non-steroidal anti-inflammatories (NSAID); Z79.899 Other long term (current) drug therapy; Z88.1 Allergy status to other antibiotic agents
CPT/HCPCS: 72100